=== PATIENT | male | born 1985 | race Caucasian/White ===

== ENCOUNTER 2019-12-19 11:42 | Observation (INO) | payer SELFPAY ==
[2019-12-19] VITALS (26 sets, daily range): BP systolic 106–164; BP diastolic 67–103; PULSE 102–135; RESP 12–25; TEMP 36.6–37.2; O2SAT 96–100; BMI 28.8
[2019-12-19 12:19] LABS: Basophils Absolute Auto 0.1 K/mm3 (0.0-0.1); Basophils Percent Auto 0.5 % (0.2-1.2); Eosinophils Absolute Auto 0.1 K/mm3 (0-0.3); Eosinophils Percent Auto 0.7 % (0-4.4); Hematocrit 48.8 % (42.0-52.0); Hemoglobin 16.8 g/dL (14.0-18.0); Immature Granulocyte Absolute 0.12 K/mm3 (0.00-0.031); Immature Granulocyte Percent A 0.6 % (0-0.5); Lymphocytes Absolute Auto 3.05 K/mm3 (0.9-3.2); Lymphocytes Percent Auto 15.7 % (18.3-44.2); Mean Corpuscular HGB Conc 34.4 g/dl (32-36); Mean Corpuscular Hemoglobin 34.4 pg (26-34); Mean Platelet Volume 10.3 fl (7.4-10.4); Monocytes Absolute Auto 2.2 K/mm3 (0.1-0.6); Monocytes Percent Auto 11.2 % (2.6-8.5); Neutrophils Absolute Auto 13.8 K/mm3 (1.3-6.7); Neutrophils Percent Auto 71.3 % (45.5-73.1); Platelet Count Result 216 k/mm3 (150-375); Red Blood Count 4.88 M/mm3 (4.6-6.20); Red Cell Distribution Width 14.2 % (11.5-14.5); White Blood Count 19.4 K/mm3 (4.5-10.0)
[2019-12-19 12:29] LABS: Prothrombin Time 13.2 Seconds (11.1-14.7)
[2019-12-19 12:30] LABS: Partial Thromboplastin Time 29.5 SECONDS (22.3-36.8)
[2019-12-19] MEDS: SODIUM CHLORIDE 0.9% IV 1,000 ML 999 ML IV CONT ×2 (12:32→13:12)
[2019-12-19] MEDS: MORPHINE SULFATE 4 MG/ML INJ IV PUSH ×2 (12:32→16:43)
[2019-12-19 12:49] LABS: Lactic Acid Reflex 1.5 mmol/L (0.7-2.1)
[2019-12-19 12:52] LABS: Erythrocyte Sedimentation Rate 15 mm/hr (0-20)
[2019-12-19 13:07] LABS: Blood Urea Nitrogen 5 mg/dL (9-20); CRP 26.6 mg/dL (<1.0); Calcium 8.6 mg/dL (8.4-10.2); Carbon Dioxide 26 mmol/L (22-30); Chloride 101 mmol/L (98-107); Estimated CRCL calculation 103 ml/min; Estimated Glomerular Filt Rate > 60; Glucose 134 mg/dL (75-110); Potassium 3.6 mmol/L (3.4-5.0); Sodium 137 mmol/L (137-145)
--- NOTE | 2019-12-19 14:51 | ED.GENADULT ---
HPI - General Adult General Chief complaint: Extremity Problem,Nontraumatic Stated complaint: L ARM INFECTION Time Seen by Provider: 12/19/19 12:13 History of Present Illness HPI narrative: Patient is a 34-year-old male who presents the ER for concerns of infection. Reports he has had some cracked skin in his fingers from work. Most notably on the third digit. Then over the last couple days he has developed lymphangitic streaking that is gone up his arm and into his axilla where he has tender lymph nodes and increased pain with range of motion at the shoulder. He has been having night sweats and subjective fevers and chills. No pus draining from his wound. He has not been on any antibiotics. Related Data Allergies Allergy/AdvReac Type Severity Reaction Status Date / Time No Known Allergies Allergy Unverified 02/24/19 05:25 Review of Systems Review of Systems: All systems reviewed & are unremarkable except as noted in HPI and below Constitutional: Constitutional: Reports chills, Reports fever(s) and Reports weakness ENT: Denies nasal congestion and Denies sore throat Cardiovascular: Cardiovascular: Denies chest pain and Denies radiating jaw, neck or arm pain Respiratory: Respiratory: Denies cough, Denies dyspnea and Denies wheezing Neurologic: Denies focal weakness and Denies numbness PMFSH Past Medical History Medical History (Updated 12/19/19 @ 15:20 by Sanjiv Farias MD) GERD (gastroesophageal reflux disease) Surgical History Surgical History (Updated 12/19/19 @ 15:17 by Sanjiv Farias MD) History of back surgery Family History Family History (Updated 12/19/19 @ 16:54 by Toni Mcclure RN) Mother Uterine cancer Diabetes mellitus Hypertension Sibling Esophageal cancer Social History Social History (Updated 12/19/19 @ 15:18 by Sanjiv Farias MD) Years smoked: 6 Smoking status: Current every day smoker Tobacco type: cigarettes Alcohol intake: current Drinks per week: 30 Substance use: never Spiritual care concerns: No Exam Narrative: Exam Narrative: GENERAL: Well-appearing, well-nourished, and in no acute distress. HEAD: Normocephalic, atraumatic. ENT: Mucous membranes moist. CHEST: Clear to auscultation. No respiratory distress. HEART: Tachycardic and regular. Normal peripheral pulses. ABDOMEN: Soft, nontender, nondistended. EXTREMITIES: Chronic skin and fingernail of the left third digit with redness that streaks up to the mid forearm. Patient is very tender in his axilla without large lymphadenopathy. Limited range of motion at the left shoulder due to pain in the axilla. SKIN: Warm, dry, no rash. NEURO: Alert and oriented x3. PSYCH: Normal mood and affect. Course Course Emergency Course: Admit for observation IV antibiotics given significant leukocytosis with persistent tachycardia and elevated CRP. Patient started cefazolin. Blood cultures ordered. Vital Signs Vital signs: Vital Signs Temperature 99 F 12/19/19 11:55 Pulse Rate 135 H 12/19/19 11:55 Respiratory Rate 20 12/19/19 11:55 Blood Pressure 106/78 12/19/19 11:55 Pulse Oximetry 100 12/19/19 11:55 Temperature 99 F 12/19/19 11:55 Pulse Rate 102 H 12/19/19 16:19 Respiratory Rate 12 12/19/19 16:19 Blood Pressure 140/101 H 12/19/19 16:19 Pulse Oximetry 99 12/19/19 16:19 Medical Decision Making Vital Signs Vital Signs: Vital Signs Temperature 99 F 12/19/19 11:55 Pulse Rate 135 H 12/19/19 11:55 Respiratory Rate 20 12/19/19 11:55 Blood Pressure 106/78 12/19/19 11:55 Pulse Oximetry 100 12/19/19 11:55 Temperature 99 F 12/19/19 11:55 Pulse Rate 102 H 12/19/19 16:19 Respiratory Rate 12 12/19/19 16:19 Blood Pressure 140/101 H 12/19/19 16:19 Pulse Oximetry 99 12/19/19 16:19 Lab Data Result diagrams: 12/19/19 12:13 12/19/19 12:13 Labs: Lab Results 12/19/19 12/19/19 12/19/19 Range/Un
[2019-12-19] MEDS: SODIUM CHLORIDE 0.9% IV 1,000 ML 125 ML IV CONT (16:42)
--- NOTE | 2019-12-19 16:52 | ADMGEN ---
This patient, Rolando Parker, was admitted to 2 Medical Room 257-01. Patient/family oriented to hospital policies and general routines including ID bracelet, bed and alarms, visiting hours, pain management, procedures, bathroom and other care routines, personal items, smoking policy, room service/diet, and visiting hours. Valuables list has been completed. Information on how to activate the Rapid Response Team has been discussed. Patient/Family are encouraged to report perceived risks to care and to ask questions if they do not understand what they are told or what they should do.
--- NOTE | 2019-12-19 18:13 | PM.IMHP ---
H&P: HPI History of Present Illness Chief complaint: cellulitis Narrative: Rolando Parker is a 34 year old male [facility] Past Medical History Medical History (Updated 12/19/19 @ 15:20 by Sanjiv Farias MD) GERD (gastroesophageal reflux disease) Surgical History Surgical History (Updated 12/19/19 @ 15:17 by Sanjiv Farias MD) History of back surgery Family History Family History (Updated 12/19/19 @ 16:54 by Toni Mcclure RN) Mother Uterine cancer Diabetes mellitus Hypertension Sibling Esophageal cancer Social History Social History (Updated 12/19/19 @ 15:18 by Sanjiv Farias MD) Years smoked: 6 Smoking status: Current every day smoker Tobacco type: cigarettes Alcohol intake: current Drinks per week: 30 Substance use: never Spiritual care concerns: No Meds Home Medications and Allergies Home Medications Medication Instructions Recorded Confirmed Type No Home Medications 12/19/19 12/19/19 History Allergies Allergy/AdvReac Type Severity Reaction Status Date / Time No Known Allergies Allergy Unverified 02/24/19 05:25 Vital Signs Vital Signs - 24 hr 12/19/19 11:55 12/19/19 12:03 12/19/19 12:15 Temperature 37.2 C Pulse Rate 135 H 122 H 115 H Respiratory Rate 20 16 20 Blood Pressure 106/78 Pulse Oximetry 100 98 97 12/19/19 12:26 12/19/19 12:30 12/19/19 12:31 Temperature Pulse Rate 123 H 117 H 121 H Respiratory Rate 22 H 21 H 25 H Blood Pressure 144/101 H 140/101 H Pulse Oximetry 98 96 97 12/19/19 12:45 12/19/19 12:46 12/19/19 13:00 Temperature Pulse Rate 107 H 111 H 109 H Respiratory Rate 19 15 18 Blood Pressure 138/97 H 140/100 H Pulse Oximetry 96 97 96 12/19/19 13:01 12/19/19 13:15 12/19/19 13:16 Temperature Pulse Rate 118 H 117 H 119 H Respiratory Rate 21 H 18 21 H Blood Pressure 134/95 H Pulse Oximetry 99 96 97 12/19/19 13:17 12/19/19 13:30 12/19/19 13:31 Temperature Pulse Rate 115 H 115 H 110 H Respiratory Rate 20 18 21 H Blood Pressure 139/103 H Pulse Oximetry 97 97 98 12/19/19 13:47 12/19/19 14:02 12/19/19 14:15 Temperature Pulse Rate 112 H 120 H 121 H Respiratory Rate 19 23 H 15 Blood Pressure 130/67 Pulse Oximetry 97 99 97 12/19/19 14:30 12/19/19 14:46 12/19/19 15:00 Temperature Pulse Rate 111 H 111 H Respiratory Rate 20 17 18 Blood Pressure Pulse Oximetry 96 96 98 12/19/19 15:33 12/19/19 16:19 Temperature Pulse Rate 110 H 102 H Respiratory Rate 18 12 Blood Pressure 140/101 H Pulse Oximetry 97 99 H&P: Results Labs Labs: Short CBC 12/19/19 Range/Units 12:13 WBC 19.4 H (4.5-10.0) K/mm3 Hgb 16.8 (14.0-18.0) g/dL Hct 48.8 (42.0-52.0) % Plt Count 216 (150-375) k/mm3 BMP 12/19/19 12:13 Sodium 137 Potassium 3.6 Chloride 101 Carbon Dioxide 26 BUN 5 L Creatinine 0.90 Glucose 134 H Calcium 8.6
--- NOTE | 2019-12-19 19:29 | PM.IMHP ---
H&P: HPI History of Present Illness Chief complaint: cellulitis Narrative: Rolando Parker is a 34 year old male who stated that he started having a finger infection about 4 days ago. The patient stated that he has a crack in the fingertips due to his job. 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 He also has multiple mosquito in sugar bites on his arms and legs. The patient stated he has had cellulitis before when his lizard bit him on that left hand in the past. The patient stated that on day 2 and 3 he started to feel feverish. He was diaphoretic and sweaty at night. He denies feeling his heart race. He felt like he had a fever. Today his middle fingers swelled up on the left side any had some streaking on the left hand that went all the way up to his shoulder and came around to the front of his shoulder. He had some enlarged lymph nodes to his left elbow and axillary area. He did not take anything at home. His heart rates been in the 130s to 160s. His heart rate was in the 90s. White count was noted to be 19.4. On IV fluids. He was given Ancef and morphine. Date of service 12/19/2019 Review of Systems Review of Systems: All systems reviewed & are unremarkable except as noted in HPI and below Constitutional: Constitutional: Reports as per HPI and Reports no additional constitutional complaints Eyes: Eyes: Reports as per HPI and Reports no additional eye complaints ENT: Reports system reviewed and no additional complaints, except as documented and Reports Normal hearing present Cardiovascular: Cardiovascular: Reports no additional cardiovascular complaints Respiratory: Respiratory: Reports no additional respiratory complaints and Reports no additional respiratory complaints Gastrointestinal: Gastrointestinal: Reports as per HPI and Reports no additional gastrointestinal complaints Musculoskeletal: Musculoskeletal: Reports no additional musculoskeletal complaints Integumentary/Breasts: Skin/Breast: Reports system reviewed and no additional complaints, except as docu and Reports as per HPI Neurologic: Reports system reviewed and no additional complaints, except as documented, Reports as per HPI and Reports Normal hearing present Psychiatric: Psychiatric: Reports no additional psychiatric complaints and Reports as per HPI Endocrine: Endocrine: Reports no additional endocrine complaints Hematologic/Lymphatic: Hematologic/Lymphatic: Reports no additional hematologic/lymphatic complaints Allergic/Immunologic: Allergic/Immunologic: Reports no additional allergic/immunologic complaints [facility] Past Medical History Medical History GERD (gastroesophageal reflux disease) Surgical History Surgical History History of back surgery Family History Family History (Updated 12/19/19 @ 16:54 by Toni Mcclure RN) Mother Uterine cancer Diabetes mellitus Hypertension Sibling Esophageal cancer Social History Social History (Updated 12/19/19 @ 19:43 by Charlene Montana NP) Social History: The patient smokes a pack a cigarettes a day since he was 28 years old. Occasional alcohol. 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 His mom Radha Sims is his durable power claims attorney for healthcare. He desires to be a full code. He is not he is single. He does not have a for any children. He desires to be a full code. He works construction. Years smoked: 6 Smoking status: Current every day smoker Tobacco type: cigarettes Alcohol intake: current Drinks per week: 30 Substance use: never Spiritual care concerns: No Meds Home Medications and Allergies Home Medications Medication Instructions Recorded Confirmed Type No Home Medications 12/19/19 12/19/19 History Allergies Allergy/AdvReac Type Severity Reaction Status Date / Ti
[2019-12-20] VITALS: PULSE 100
[2019-12-20] MEDS: SODIUM CHLORIDE 0.9% IV 1,000 ML 125 ML IV CONT (01:20)
[2019-12-20 04:00] VITALS: PULSE 94
[2019-12-20 04:34] LABS: Basophils Absolute Auto 0.1 K/mm3 (0.0-0.1); Basophils Percent Auto 0.6 % (0.2-1.2); Eosinophils Absolute Auto 0.1 K/mm3 (0-0.3); Eosinophils Percent Auto 1.2 % (0-4.4); Hematocrit 41.8 % (42.0-52.0); Immature Granulocyte Absolute 0.03 K/mm3 (0.00-0.031); Immature Granulocyte Percent A 0.3 % (0-0.5); Lymphocytes Absolute Auto 2.69 K/mm3 (0.9-3.2); Lymphocytes Percent Auto 23.1 % (18.3-44.2); Mean Corpuscular HGB Conc 33.5 g/dl (32-36); Mean Corpuscular Hemoglobin 33.7 pg (26-34); Mean Corpuscular Volume 100.7 fl (80-100); Mean Platelet Volume 10.2 fl (7.4-10.4); Monocytes Absolute Auto 1.2 K/mm3 (0.1-0.6); Monocytes Percent Auto 10.2 % (2.6-8.5); Neutrophils Absolute Auto 7.5 K/mm3 (1.3-6.7); Neutrophils Percent Auto 64.6 % (45.5-73.1); Platelet Count Result 188 k/mm3 (150-375); Red Blood Count 4.15 M/mm3 (4.6-6.20); Red Cell Distribution Width 13.9 % (11.5-14.5); White Blood Count 11.6 K/mm3 (4.5-10.0)
[2019-12-20 05:49] VITALS: BP 165/93; PULSE 129; RESP 18; TEMP 36.2; O2SAT 100
[2019-12-20 06:51] LABS: Alanine Aminotransferase 54 U/L (4-50); Albumin Level 3.1 g/dL (3.5-5.1); Alkaline Phosphatase 86 U/L (38-126); Aspartate Amino Transferase 54 U/L (17-59); Bilirubin,Total 0.5 mg/dL (0.2-1.3); Blood Urea Nitrogen 3 mg/dL (9-20); Calcium 7.7 mg/dL (8.4-10.2); Carbon Dioxide 26 mmol/L (22-30); Chloride 103 mmol/L (98-107); Estimated CRCL calculation 117 ml/min; Estimated Glomerular Filt Rate > 60; Glucose 121 mg/dL (75-110); Magnesium 1.7 mg/dL (1.6-2.3); Potassium 3.4 mmol/L (3.4-5.0); Sodium 134 mmol/L (137-145)
[2019-12-20 07:02] LABS: CRP 17.6 mg/dL (<1.0)
[2019-12-20 08:00] VITALS: PULSE 91
--- NOTE | 2019-12-20 08:12 | PM.IMPN ---
Progress Note: A&P Assessment and Plan (1) Sepsis: Qualifiers: Sepsis type: sepsis due to unspecified organism Sepsis acute organ dysfunction status: without acute organ dysfunction Qualified Code(s): A41.9 - Sepsis, unspecified organism Code(s): A41.9 - Sepsis, unspecified organism Status: Acute Assessment and Plan: He met SIRS criteria at presentation with leyokcytosis and tachycardia. The suspected source is LUE cellulitis. He received IV fluids. Plan to continue IV antibitics. Blood cultures were obtained and are pending. (2) Cellulitis: Qualifiers: Site of cellulitis: extremity Site of cellulitis of extremity: upper extremity Laterality: left Qualified Code(s): L03.114 - Cellulitis of left upper limb Code(s): L03.90 - Cellulitis, unspecified Status: Acute Assessment and Plan: Due to a small cut on the left 3rd finger. He reported subjective fever and chills. He had erythema, lymphangitic streaking extending up to the shoulder, and lymphadenopathy in the left axilla and antecubital region. Leukocytosis is resolving. CRP is trending down. His erythema is resolving and edema is minimal today. Plan to continue ancef. He is tolerating PO intake well so I will discontinue IV fluids. Continue analgesics PRN. Will continue to monitor. (3) GERD (gastroesophageal reflux disease): Qualifiers: Esophagitis presence: esophagitis presence not specified Qualified Code(s): K21.9 - Gastro-esophageal reflux disease without esophagitis Code(s): K21.9 - Gastro-esophageal reflux disease without esophagitis Status: Chronic Assessment and Plan: The patient reports a hx of mild GERD but is not currently taking any medications at home. Continue PRN calcium carbonate. (4) Tobacco abuse: Code(s): Z72.0 - Tobacco use Status: Chronic Assessment and Plan: The patient is a current 1 PPD smoker I have encouraged him to quit. He has declined the need for a nicotine patch. I discussed various parmacologic therapies and encouraged him to follow-up with his PCP if he is interested. (5) Elevated blood-pressure reading, without diagnosis of hypertension: Code(s): R03.0 - Elevated blood-pressure reading, without diagnosis of hypertension Status: Acute Assessment and Plan: His blood pressures are persistently elevated >140/80 with systolic as high as 164 and diastolic as high as 100. He does not check his blood pressure regularly at home. Plan to begin amlodipine. He will need to monitor his BP at home and take a log to his PCP. (6) Elevated fasting glucose: Code(s): R73.01 - Impaired fasting glucose Status: Acute Assessment and Plan: Fasting blood sugar was 121 today. Plan to order HbA1c. Continue to monitor. (7) DVT prophylaxis: Code(s): Z29.9 - Encounter for prophylactic measures, unspecified Status: Acute Assessment and Plan: Continue lovenox SQ. Time Spent With Patient Time with patient: 15 - 25 minutes Subjective Date/time seen: 12/20/19 08:12 Interval history: Mr. Parker is seen in follow-up for cellulitis of the LUE. He still complains of pain (5-6/10) of the LUE but notes that the swelling and erythema are improving. He reports chills overnight but does feel that has resolved today. He is tolerating PO intake well without nauesa and vomiting. He notes his lymphadenopathy has improved in the left axilla and antecubital fossa. He denies chest pain and shortness of breath. He denies palpitations. Review of Systems Review of Systems: All systems reviewed & are unremarkable except as noted in HPI and below Exam Narrative: Exam Narrative: General: Pleasant, healthy appearing, well-developed and well-nourished 34 y.o.male lying supine in bed in no acute distress watching TV. HEENT: Normocephalic and atraumatic. Conjunctivae and lids normal.EOMI. Moist
[2019-12-20] MEDS: NEOMYCIN/POLYMYXIN/BACITRACIN OINTMENT 15 GM TUBE 1 APPLIC TOPICAL (09:47)
[2019-12-20] MEDS: ENOXAPARIN 40 MG/0.4 ML SYRINGE SUB-Q (09:47)
[2019-12-20] MEDS: AMLODIPINE BESYLATE 5 MG TABLET PO (10:43)
[2019-12-20 14:00] VITALS: BP 161/97; PULSE 84; RESP 16; TEMP 36.4; O2SAT 100
[2019-12-20 20:00] VITALS: BP 150/98; PULSE 89; RESP 18; TEMP 36.2; O2SAT 100
[2019-12-21 04:30] VITALS: BP 158/100; PULSE 84; RESP 20; TEMP 36.8; O2SAT 100
[2019-12-21 05:58] LABS: Hemoglobin 15.8 g/dL (14.0-18.0); Mean Corpuscular HGB Conc 33.6 g/dl (32-36); Mean Corpuscular Hemoglobin 34.2 pg (26-34); Mean Corpuscular Volume 101.7 fl (80-100); Mean Platelet Volume 10.2 fl (7.4-10.4); Platelet Count Result 237 k/mm3 (150-375); Red Blood Count 4.62 M/mm3 (4.6-6.20); Red Cell Distribution Width 13.7 % (11.5-14.5); White Blood Count 8.1 K/mm3 (4.5-10.0)
[2019-12-21 06:24] LABS: Hemoglobin A1C 5.2 % (<5.7)
[2019-12-21 06:26] LABS: Blood Urea Nitrogen 7 mg/dL (9-20); CRP 7.3 mg/dL (<1.0); Calcium 8.8 mg/dL (8.4-10.2); Carbon Dioxide 24 mmol/L (22-30); Chloride 104 mmol/L (98-107); Estimated CRCL calculation 104 ml/min; Estimated Glomerular Filt Rate > 60; Glucose 79 mg/dL (75-110); Sodium 137 mmol/L (137-145)
[2019-12-21 08:00] VITALS: PULSE 84; RESP 20; O2SAT 100
[2019-12-21] MEDS: ENOXAPARIN 40 MG/0.4 ML SYRINGE SUB-Q (09:21)
[2019-12-21] MEDS: AMLODIPINE BESYLATE 5 MG TABLET PO (09:21)
[2019-12-21] MEDS: NEOMYCIN/POLYMYXIN/BACITRACIN OINTMENT 15 GM TUBE 1 APPLIC TOPICAL (09:21)
[2019-12-21 14:00] VITALS: BP 139/58; PULSE 100; RESP 16; TEMP 36.8; O2SAT 100
--- NOTE | 2019-12-21 16:01 | PM.DS ---
DS: Admitting Diagnosis Admitting Diagnosis Admitting Diagnosis: Cellulitis, unspecified DS: Discharge Diagnosis Discharge Diagnosis (1) Cellulitis: Qualifiers: Laterality: left Site of cellulitis: extremity Site of cellulitis of extremity: upper extremity Qualified Code(s): L03.114 - Cellulitis of left upper limb Code(s): L03.90 - Cellulitis, unspecified Status: Acute Assessment and Plan: Due to a small linear cut on the left 3rd finger. He reported subjective fever and chills. He had erythema, lymphangitic streaking extending up to the shoulder, and lymphadenopathy in the left axilla and antecubital region. Leukocytosis resolved and CRP improved. His erythema and edema resolved, his pain improved, and he had full ROM of the left hand and upper extremity. He remained afebrile. He was treated with IV ancef and will continue PO Keflex as an outpatient for 5 days. (2) Sepsis: Qualifiers: Sepsis acute organ dysfunction status: without acute organ dysfunction Sepsis type: sepsis due to unspecified organism Qualified Code(s): A41.9 - Sepsis, unspecified organism Code(s): A41.9 - Sepsis, unspecified organism Status: Acute Assessment and Plan: He met SIRS criteria at presentation with leuokcytosis and tachycardia, with suspected source of infection being LUE cellulitis. Blood cultures reveal NGTD and final cultures will be monitored. (3) GERD (gastroesophageal reflux disease): Qualifiers: Esophagitis presence: esophagitis presence not specified Qualified Code(s): K21.9 - Gastro-esophageal reflux disease without esophagitis Code(s): K21.9 - Gastro-esophageal reflux disease without esophagitis Status: Chronic Assessment and Plan: The patient reports a hx of mild GERD but is not currently taking any medications at home. (4) Tobacco abuse: Code(s): Z72.0 - Tobacco use Status: Chronic Assessment and Plan: The patient is a current 1 PPD smoker. I spent 5 minutes discussing smoking cessation with him and he is motivated to quit smoking. He declined need for a nicotine patch. I discussed various parmacologic therapies and encouraged him to follow-up with his PCP. (5) Elevated blood-pressure reading, without diagnosis of hypertension: Code(s): R03.0 - Elevated blood-pressure reading, without diagnosis of hypertension Status: Acute Assessment and Plan: His blood pressures were persistently elevated >140/80 with systolic as high as 165 and diastolic as high as 101. He was initiated on 5 mg Amlodipine which he will continue as an outpatient. I encouraged him to monitor his blood pressures at home and record for PCP evaluation. (6) Elevated fasting glucose: Code(s): R73.01 - Impaired fasting glucose Status: Acute Assessment and Plan: He had an elevated fasting blood sugar of 134. A1c was 5.2. DS: Summary Hospital Course Reason for hospitalization: Left upper extremity cellulitis Hospital Course: Date of admission: 12/19/2019 Date of discharge: 12/21/2019 Rolando Parker is a 34-year-old male 1 pack per day smoker who presented to the emergency department on 12/19/2019 with complaints left arm tenderness. 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 Approximately 2-3 days prior to presentation, this progressed and he developed lymphangitic streaking up his left arm and into his left axillary region. He endorsed fevers, chills, diaphoresis, and pain with range of motion. He was noted to have small shotty lymphadenopathy in the left axilla. At presentation, patient was tachycardic, afebrile, WBC 19.4, glucose 134, ESR 13.2, CRP 26.6, and lactic 1.5. He was admitted to the hospitalist. He was started on IV Ancef and given morphine for pain control. His erythema and edema impr
[2019-12-21] MEDS: CEPHALEXIN 500 MG CAPSULE PO (16:49)
== END 2019-12-21 17:17 | disposition home or self-care (01) ==
LOC: ANHED 15:20 → ANH2MED 15:41
PROVIDERS: Nurse Practitioner; Physician Assistant; Admitting Provider Hospitalist; Emergency Provider Emergency Medicine; Visit Provider Physician Assistant
DX: A41.9 Sepsis, unspecified organism (principal); L03.114 Cellulitis of left upper limb; K21.9 Gastro-esophageal reflux disease without esophagitis; F17.210 Nicotine dependence, cigarettes, uncomplicated; R73.01 Impaired fasting glucose; R03.0 Elevated blood-pressure reading, without diagnosis of hypertension
CPT/HCPCS: 36415; 80048; 80053; 83036; 83605; 83735; 84443; 85025; 85027; 85610; 85652; 85730; 86140; 87040; 96361; 96365; 96366; 96372; 96375; 96376; 99285; A9270; G0378; G0379; J0690; J1650; J2270; J7030

== ENCOUNTER 2020-08-17 16:27 | Emergency (ER) | payer OTHER, SELFPAY ==
[2020-08-17 16:36] VITALS: BP 134/81; PULSE 106; RESP 16; TEMP 36.6; O2SAT 100
--- NOTE | 2020-08-17 16:57 | ED.DENTAL ---
HPI - Dental/Oral General Chief complaint: Dental/Oral Stated complaint: tooth pain Time Seen by Provider: 08/17/20 16:50 Source: patient Mode of arrival: ambulatory Limitations: no limitations History of Present Illness HPI Narrative: Rolando Parker is a 35 yo male with c/o dental pain. He has been on Pen-Vee K in June for tooth pain on the right side; he is currently having tooth pain on tooth 11 tooth is broken and states that ibuprofen Tylenol not helping and he is taking amoxicillin and also is not helping. Rates pain as 6/10 History of poor dentition with multiple cavities and abscesses Related Data Allergies Allergy/AdvReac Type Severity Reaction Status Date / Time No Known Allergies Allergy Verified 08/17/20 16:49 Review of Systems Review of Systems: Narrative: CONSTITUTIONAL: Denies fever, chills, sweats. EYES: Denies visual changes, redness, discharge. ENT: Denies rhinorrhea, congestion, sore throat, otalgia. CARDIOVASCULAR: Denies chest pain, palpitations, edema. RESPIRATORY: Denies dyspnea, wheezing, cough GASTROINTESTINAL: Denies abdominal pain, nausea, vomiting, diarrhea. GENITOURINARY: Denies dysuria, hematuria, abnormal discharge SKIN: Denies rash or itching. NEUROLOGIC: Denies numbness, or focal weakness. PSYCHIATRIC: Denies anxiety or depression. [facility] Past Medical History Medical History GERD (gastroesophageal reflux disease) Surgical History Surgical History History of back surgery Family History Family History Mother Uterine cancer Diabetes mellitus Hypertension Sibling Esophageal cancer Social History Social History Social History: The patient smokes a pack a cigarettes a day since he was 28 years old. Occasional alcohol. 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 His mom Radha Sims is his durable power workers compensation attorney for healthcare. He desires to be a full code. He is not he is single. He does not have a for any children. He desires to be a full code. He works construction. Years smoked: 6 Smoking status: Current every day smoker Tobacco type: cigarettes Alcohol intake: current Drinks per week: 30 Substance use: never Spiritual care concerns: No Comments At time of signature, I agree with nursing past medical, surgical, social and family history. There is no relevant family history pertinent to the presenting complaint. Exam Narrative: Exam Narrative: GENERAL: This is a well-nourished, well-developed patient, in mild distress. HEAD: normocephalic, atraumatic. EYES: Sclera clear/white. Vision is grossly intact. EARS: External ears normal. Hearing grossly intact. NOSE: External nose normal without nasal discharge, nares without redness, no rhinorrhea. THROAT: Mucous membranes moist, posterior pharynx MOUTH: L premolar cracked - poor dentition; teeth are in poor repair with multiple cavities NECK: Neck supple, non-tender CARDIOVASCULAR: Regular rate and rhythm without murmurs, gallops, or rubs. RESPIRATORY: Clear to auscultation. Breath sounds equal bilaterally. No wheezes, rales, or rhonchi. GASTROINTESTINAL: Abdomen soft, non-tender, SKIN: warm, intact with no suspicious lesions or rash, good texture and turgor. NEURO: awake, alert, and oriented to person, place and time. There were no obvious focal neurologic abnormalities. Steady gait EXTREMITIES: Normal range of motion. BACK: Nontender without deformity Course Course Emergency Course: Patient came to urgent care with complaints of right premolar pain he has been seen here for dental pain in the past and has a dental appointment in 6-week Patient has been on Pen-Vee K and amoxicillin the last 45 days so changed to clindamycin Continue ib
== END 2020-08-17 17:46 | disposition home or self-care (01) ==
PROVIDERS: Emergency Provider Nurse Practitioner
DX: K04.7 Periapical abscess without sinus (principal); F17.210 Nicotine dependence, cigarettes, uncomplicated; K21.9 Gastro-esophageal reflux disease without esophagitis
CPT/HCPCS: 99213; G0463

== ENCOUNTER 2024-08-24 07:40 | Outpatient (CLI) | payer OTHER, SELFPAY ==
--- NOTE | ~2024-08-24 | US_ITS ---
EXAMINATION: US soft tissue abdomen DATE: 08/24/2024 08:08 INDICATION: Protruding abdominal wall mass at the right side of the umbilicus most notable with Valsa lva. TECHNIQUE: Multiple grayscale and Doppler ultrasound images of the right paraumbilical abdominal wall were obtained. COMPARISON: None FINDINGS: There is a fat-containing ventral hernia reportedly at the umbilicus with hernia sac measuring up to 3.2 cm maximal diameter and extending through 5-6 mm focus which transiently increases in size with V alsalva. No evident herniated bowel. IMPRESSION: 1. Small fat-containing ventral hernia reportedly at the umbilicus which transiently increases in siz e with Valsalva. Reviewed, dictated and finalized at location A. R LAW PROFESSOR IMPRESSION: 1. Small fat-containing ventral hernia reportedly at the umbilicus which transi ently increases in size with Valsalva.
== END 2024-08-24 07:41 | disposition home or self-care (01) ==
PROVIDERS: PCP Nurse Practitioner Adult Health; Visit Provider Nurse Practitioner Adult Health
DX: R19.8 Other specified symptoms and signs involving the digestive system and abdomen (principal); K43.9 Ventral hernia without obstruction or gangrene
CPT/HCPCS: 76705

== ENCOUNTER 2024-09-08 08:01 | Outpatient (CLI) | payer OTHER, SELFPAY ==
[2024-09-08 21:07] LABS: Alanine Aminotransferase 38 U/L (6-50); Albumin Level 4.1 g/dL (3.5-5.1); Alkaline Phosphatase 67 U/L (38-126); Aspartate Amino Transferase 73 U/L (17-59); Bilirubin,Total 0.6 mg/dL (0.2-1.3)
== END 2024-09-08 08:02 | disposition home or self-care (01) ==
LOC: ANHBWCLAB 08:02
PROVIDERS: PCP Nurse Practitioner Adult Health; Visit Provider Nurse Practitioner Adult Health
DX: R74.8 Abnormal levels of other serum enzymes (principal)
CPT/HCPCS: 36415; 80076

== ENCOUNTER 2025-02-06 17:17 | Emergency (ER) | payer OTHER, SELFPAY ==
[2025-02-06 17:21] VITALS: BP 152/87; PULSE 65; RESP 16; TEMP 36.3; O2SAT 100
--- NOTE | 2025-02-06 18:42 | PC.NURSE ---
PT LWBS D/T WAIT TIME
== END 2025-02-06 18:42 | disposition left against medical advice (07) ==
LOC: ANHED 18:57
PROVIDERS: PCP Nurse Practitioner Adult Health
DX: R10.9 Unspecified abdominal pain (principal)
CPT/HCPCS: 99199